=== PATIENT | female | born 1945 | race African-American/Black ===

== ENCOUNTER 2018-09-01 06:13 | Inpatient (IN) | payer MEDICARE, MEDICAID ==
[~2018-09-01] VITALS: Ht 162.6 cm; Wt 117.9 kg
[~2018-09-01 06:13] MED LIST: ALEN70TA46 PO; ASCO-339 PO; ATEN-42 PO; BACL-141 PO; COMBIV IH; DEXTL PO; GABA-290 PO; HYDR-3927 PO; LORA-249 PO; MULT-673 PO; OMEP20CA10 PO; TRAM100T34 PO; ZOLP5TAB2 PO
[2018-09-01] MEDS ORDERED: IPRATROPIUM BROMIDE (0.02%) 0.5MG/2.5ML NEB HHN STA (06:35)
[2018-09-01] MEDS ORDERED: METHYLPREDNISOLONE SOD SUCC 125 MG/2 ML VIAL IV STA (06:35)
[2018-09-01] MEDS ORDERED: ALBUTEROL (0.083%) 2.5MG/3ML NEB HHN STA (06:35)
[2018-09-01] MEDS ORDERED: ASPIRIN 325MG TABLET PO ONE (06:45)
[2018-09-01] MEDS ORDERED: NITROGLYCERIN OINT 1GM/INCH UDPKT TD ONE (06:45)
[2018-09-01 07:48] LABS: BASOPHILS % 0.4 % (0.0-2.0); HEMATOCRIT. 38.6 % (36.0-48.0); HEMOGLOBIN. 12.6 g/dL (12.0-16.0); LYMPHOCYTES % 17.4 % (20.0-50.0); MEAN CORPUSCULAR VOLUME 89.4 fL (81.0-99.0); MEAN PLATELET VOLUME 8.8 fl (7.4-10.4); MONOCYTES % 6.2 % (2.0-8.0); PLATELET 237 x1000/uL (130-400); RED BLOOD CELL COUNT 4.32 mill/uL (4.2-5.4); RED CELL DISTRIBUTION WIDTH 14.7 % (11.6-14.6)
[2018-09-01 07:55] LABS: PROTHROMBIN TIME 9.9 sec (9.1-11.1)
[2018-09-01] MEDS ORDERED: GABAPENTIN 300MG CAPSULE PO STA (09:37)
[2018-09-01] MEDS ORDERED: CLONIDINE 0.1MG TABLET PO PRN (10:15)
[2018-09-01] MEDS ORDERED: MORPHINE SULFATE 2 MG/ML CPJ (NOT FOR IM USE) IV PRN (10:15)
[2018-09-01] MEDS ORDERED: DIPHENHYDRAMINE 50MG/ML VIAL IV PRN (10:15)
[2018-09-01] MEDS ORDERED: DOCUSATE SODIUM 100MG CAPSULE PO PRN (10:15)
[2018-09-01] MEDS ORDERED: ONDANSETRON HCL 4MG/2ML INJ IV PRN (10:15)
[2018-09-01] MEDS ORDERED: GUAIFENESIN 200MG/10ML SUGAR FREE UDC PO PRN (10:15)
[2018-09-01] MEDS ORDERED: NITROGLYCERIN 0.4MG TABLET SL SL PRN (10:15)
[2018-09-01] MEDS ORDERED: MAGNESIUM/ALUMINUM HYDROXIDE/SIMETHICONE 30ML UDC PO PRN (10:15)
[2018-09-01] MEDS ORDERED: NA PHOS,M-B/NA PHOS,DI-BA ENEMA 118ML PR PRN (10:15)
[2018-09-01] MEDS ORDERED: ACETAMINOPHEN 325MG TABLET PO PRN (10:15)
[2018-09-01 10:20] LABS: CHLORIDE 101 mEq/L (98-107)
[2018-09-01 14:30] VITALS: BP 129/96
[2018-09-01 16:00] VITALS: BP 124/71
[2018-09-01] MEDS ORDERED: IPRATROPIUM/ALBUTEROL 0.5-3(2.5)MG/3ML NEB INH PRN (16:00)
[2018-09-01] MEDS: HYDROCODONE/ACETAMINOPHEN 10/325MG TABLET PO PRN (16:38)
[2018-09-01 17:12] VITALS: BP 124/71
[2018-09-01] MEDS: ENOXAPARIN 30MG/0.3ML SYR SUBCUT SCH (17:36)
[2018-09-01] MEDS: METHYLPREDNISOLONE SOD SUCC 125 MG/2 ML VIAL IV SCH ×2 (17:37→23:35)
[2018-09-01] MEDS: MORPHINE SULFATE 4 MG/ML CPJ (NOT FOR IM USE) IV PRN ×2 (19:02→23:39)
[2018-09-01 20:00] VITALS: BP 134/77
[2018-09-01] MEDS: ASCORBIC ACID 500 MG TABLET PO SCH (20:41)
[2018-09-01] MEDS: FAMOTIDINE 20MG TABLET PO SCH (20:41)
[2018-09-01] MEDS: LORAZEPAM 0.5MG TABLET PO PRN (20:41)
[2018-09-01] MEDS: METOPROLOL TARTRATE 25MG TABLET PO SCH ×2 (20:42→20:44)
[2018-09-01] MEDS: IPRATROPIUM/ALBUTEROL 0.5-3(2.5)MG/3ML NEB HHN SCH (21:02)
[2018-09-02] VITALS (7 sets, daily range): BP systolic 136–161; BP diastolic 73–97
[2018-09-02] MEDS: ZOLPIDEM TARTRATE 5MG TABLET PO PRN ×2 (00:40→21:50)
[2018-09-02] MEDS: IPRATROPIUM/ALBUTEROL 0.5-3(2.5)MG/3ML NEB HHN SCH ×6 (04:18→21:10)
[2018-09-02] MEDS: MORPHINE SULFATE 4 MG/ML CPJ (NOT FOR IM USE) IV PRN ×3 (04:29→14:36)
[2018-09-02] MEDS: METHYLPREDNISOLONE SOD SUCC 125 MG/2 ML VIAL IV SCH ×2 (05:38→14:37)
[2018-09-02] MEDS: ASCORBIC ACID 500 MG TABLET PO SCH ×3 (09:00→21:00)
[2018-09-02] MEDS: FAMOTIDINE 20MG TABLET PO SCH ×3 (09:00→21:32)
[2018-09-02] MEDS: ASPIRIN 325MG EC TABLET PO SCH (09:00)
[2018-09-02] MEDS: ZINC SULFATE 220 MG ( 50 ) CAPSULE PO SCH ×2 (09:00→09:04)
[2018-09-02] MEDS: ENOXAPARIN 30MG/0.3ML SYR SUBCUT SCH ×2 (09:05→21:35)
[2018-09-02] MEDS: HYDROCODONE/ACETAMINOPHEN 10/325MG TABLET PO PRN ×2 (13:13→18:55)
[2018-09-02] MEDS ORDERED: MORPHINE SULFATE 10MG/5ML ORAL SOLN UDC PO PRN (19:15)
[2018-09-02] MEDS: GUAIFENESIN 600MG ER TABLET PO SCH (21:00)
[2018-09-02] MEDS: METOPROLOL TARTRATE 25MG TABLET PO SCH ×2 (21:00→21:32)
[2018-09-02] MEDS: METHYLPREDNISOLONE SOD SUCC 40 MG/ML VIAL IV SCH (21:32)
[2018-09-03] VITALS: BP 152/68
[2018-09-03] MEDS: IPRATROPIUM/ALBUTEROL 0.5-3(2.5)MG/3ML NEB HHN SCH ×5 (00:18→19:56)
[2018-09-03] MEDS: HYDROCODONE/ACETAMINOPHEN 10/325MG TABLET PO PRN ×4 (00:55→18:51)
[2018-09-03 04:00] VITALS: BP 145/71
[2018-09-03 08:00] VITALS: BP 131/92
[2018-09-03] MEDS: ENOXAPARIN 30MG/0.3ML SYR SUBCUT SCH ×2 (09:12→20:31)
[2018-09-03] MEDS: ZINC SULFATE 220 MG ( 50 ) CAPSULE PO SCH (09:12)
[2018-09-03] MEDS: ASCORBIC ACID 500 MG TABLET PO SCH ×2 (09:13→20:32)
[2018-09-03] MEDS: ASPIRIN 325MG EC TABLET PO SCH (09:13)
[2018-09-03] MEDS: GUAIFENESIN 600MG ER TABLET PO SCH ×2 (09:13→20:31)
[2018-09-03] MEDS: METOPROLOL TARTRATE 25MG TABLET PO SCH ×2 (09:13→20:31)
[2018-09-03] MEDS: FAMOTIDINE 20MG TABLET PO SCH ×2 (09:13→20:31)
[2018-09-03] MEDS: METHYLPREDNISOLONE SOD SUCC 40 MG/ML VIAL IV SCH ×2 (09:14→20:30)
[2018-09-03 12:00] VITALS: BP 157/55
[2018-09-03 16:33] VITALS: BP 147/69
[2018-09-03] MEDS: LORAZEPAM 0.5MG TABLET PO PRN (16:44)
[2018-09-03 20:00] VITALS: BP 152/74
[2018-09-03] MEDS: ZOLPIDEM TARTRATE 5MG TABLET PO PRN (20:31)
[2018-09-04] VITALS (8 sets, daily range): BP systolic 133–173; BP diastolic 58–79
[2018-09-04] MEDS: IPRATROPIUM/ALBUTEROL 0.5-3(2.5)MG/3ML NEB HHN SCH ×4 (00:31→13:50)
[2018-09-04] MEDS: HYDROCODONE/ACETAMINOPHEN 10/325MG TABLET PO PRN ×2 (00:59→08:29)
[2018-09-04] MEDS: LORAZEPAM 0.5MG TABLET PO PRN (06:50)
[2018-09-04] MEDS: ENOXAPARIN 30MG/0.3ML SYR SUBCUT SCH (08:27)
[2018-09-04] MEDS: METOPROLOL TARTRATE 25MG TABLET PO SCH (08:29)
[2018-09-04] MEDS: ZINC SULFATE 220 MG ( 50 ) CAPSULE PO SCH (09:00)
[2018-09-04] MEDS: GUAIFENESIN 600MG ER TABLET PO SCH (09:00)
[2018-09-04] MEDS: ASCORBIC ACID 500 MG TABLET PO SCH (09:00)
[2018-09-04] MEDS: METHYLPREDNISOLONE SOD SUCC 40 MG/ML VIAL IV SCH (09:37)
[2018-09-04] MEDS: ASPIRIN 325MG EC TABLET PO SCH (09:53)
[2018-09-04] MEDS: FAMOTIDINE 20MG TABLET PO SCH (10:00)
[2018-09-04] MEDS ORDERED: HYDRALAZINE HCL 50MG TABLET PO SCH (14:36)
[2018-09-04] MEDS ORDERED: LOSARTAN POTASSIUM 100 MG TABLET PO SCH (14:37)
== END 2018-09-04 17:30 | DRG 140 ==
LOC: ER 06:13 → 8WST 09:29 → EDBEDREQ 09:31 → ENRESERV 12:00
PROVIDERS: ADMIT Internal Medicine; ATTEND Internal Medicine
DX: J44.0 Chronic obstructive pulmonary disease with (acute) lower respiratory infection (principal); J96.00 Acute respiratory failure, unspecified whether with hypoxia or hypercapnia; E66.01 Morbid (severe) obesity due to excess calories; J44.1 Chronic obstructive pulmonary disease with (acute) exacerbation; F17.210 Nicotine dependence, cigarettes, uncomplicated; I10 Essential (primary) hypertension; M54.9 Dorsalgia, unspecified; M48.00 Spinal stenosis, site unspecified; F32.9 Major depressive disorder, single episode, unspecified; G89.29 Other chronic pain; J20.9 Acute bronchitis, unspecified; Z79.899 Other long term (current) drug therapy; Z90.49 Acquired absence of other specified parts of digestive tract; Z98.891 History of uterine scar from previous surgery; Z88.0 Allergy status to penicillin; Z88.1 Allergy status to other antibiotic agents; Z88.8 Allergy status to other drugs, medicaments and biological substances; Z68.41 Body mass index [BMI] 40.0-44.9, adult
CPT/HCPCS: 36415; 71045; 83036; 83605; 83880; 84484; 93005; 93306; 93970; 94640; 96374; 99285; J1200; J1650; J2270; J2405; J2920; J2930; J7611; J7620